=== PATIENT | female | born 1965 | race American Indian/Alaskan Native ===

== ENCOUNTER 2017-06-13 17:55 | Emergency (ER) | payer MEDICARE ==
[2017-06-13 20:31] LABS: Anion Gap 22 mmol/L; Blood Urea Nitrogen 10 mg/dL (7-17); Calcium 9.7 mg/dL (8.4-10.2); Carbon Dioxide 24 mmol/L (22-30); Chloride 102.2 mmol/L (98-107); Glucose 101 mg/dL (65-100); Potassium 3.3 mmol/L (3.6-5.0); Sodium 145 mmol/L (137-145)
[2017-06-13 20:37] LABS: Hematocrit 49.4 % (30.3-42.9); Hemoglobin 16.5 gm/dl (10.1-14.3); Mean Corpuscular HGB Conc 33 % (30-34); Mean Corpuscular Hemoglobin 31 pg (28-32); Mean Corpuscular Volume 94 fl (79-97); Platelet Count 183 K/mm3 (140-440); Red Blood Count 5.28 M/mm3 (3.65-5.03); Red Cell Distribution Width 13.4 % (13.2-15.2); White Blood Count 10.9 K/mm3 (4.5-11.0)
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
[2017-06-14] MEDS ORDERED: K-DUR PO ONE (01:07)
[2017-06-14] MEDS ORDERED: POTASSIUM CHLORIDE PO ONE (01:50)
[2017-06-14] MEDS ORDERED: CATAPRES PO ONE (01:50)
[2017-06-14] MEDS ORDERED: TENIVAC IM ONE (01:50)
[2017-06-14] MEDS ORDERED: ALUM-MAG HYDROX-SIMETH 200-200-20MG/5ML PO ONE (01:50)
[2017-06-14 02:07] LABS: Urine Drugs of Abuse Note Disclamer
[2017-06-14 02:28] LABS: Bilirubin,Urine NEG (Negative); Blood,Urine SM (Negative); Ketones,Urine 20 mg/dL (Negative); Leukocyte Esterase,Urine NEG (Negative); Nitrite,Urine NEG (Negative); Urobilinogen,Urine < 2.0 mg/dL (<2.0)
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
[2017-06-14 05:06] VITALS: BP 160/90
[2017-06-14] MEDS ORDERED: NORVASC PO SCH (10:00)
== END 2017-06-14 09:03 ==
LOC: ED 17:55
DX: S80.211A Abrasion, right knee, initial encounter (principal); F20.9 Schizophrenia, unspecified; I10 Essential (primary) hypertension; D64.9 Anemia, unspecified; Y93.39 Activity, other involving climbing, rappelling and jumping off; Y93.89 Activity, other specified; Y99.9 Unspecified external cause status; Y92.89 Other specified places as the place of occurrence of the external cause
CPT/HCPCS: 36415; 73552; 73590; 80048; 80307; 81001; 85027; 99285; G0480; 80320; 90714

== ENCOUNTER 2020-09-08 14:16 | Emergency (ER) | payer OTHER, MEDICARE ==
[2020-09-08 14:26] VITALS: BP 144/92
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
== END 2020-09-08 16:26 | disposition home or self-care (01) ==
LOC: ED 14:16
DX: S80.01XA Contusion of right knee, initial encounter (principal); R07.89 Other chest pain; R51.9 Headache, unspecified; I10 Essential (primary) hypertension; F20.9 Schizophrenia, unspecified; Z98.890 Other specified postprocedural states; V49.59XA Passenger injured in collision with other motor vehicles in traffic accident, initial encounter; W22.10XA Striking against or struck by unspecified automobile airbag, initial encounter; Y93.89 Activity, other specified; Y92.410 Unspecified street and highway as the place of occurrence of the external cause; Y99.8 Other external cause status
CPT/HCPCS: 70450; 72125